=== PATIENT | female | born 1985 | race Caucasian/White ===

== ENCOUNTER 2019-04-20 12:04 | Emergency (ER) | payer BC ==
[2019-04-20 12:31] VITALS: BP 111/78
--- NOTE | 2019-04-20 13:43 | UC ---
Ear Complaint HPI - HPI Summary HPI Summary: Pt presents with c/o bialteral ear pain/ache and nasal congestion. Pt is concerned that she may have ear infections. Pt has nasal congestion and generalized body aches X 3-4 days. - History of Current Complaint Chief Complaint: UCEar Stated Complaint: EAR PAIN Time Seen by Provider: 04/20/19 12:33 Hx Obtained From: Patient Hx Last Menstrual Period: 04/04/19 ?: No Onset/Duration: Gradual Onset, Lasting Days, Still Present Severity Initially: Mild Severity Currently: Moderate Pain Intensity: 4 Pain Scale Used: 0-10 Numeric Associated Signs/Symptoms: Positive: URI Symptoms Related History: Seasonal Allergies - Allergies/Home Medications Allergies/Adverse Reactions: Allergies Allergy/AdvReac Type Severity Reaction Status Date / Time sulfamethoxazole Allergy Rash Verified 04/20/19 12:27 [From Bactrim] trimethoprim [From Bactrim] Allergy Rash Verified 04/20/19 12:27 Home Medications: Home Medications NK [No Home Medications Reported] 04/20/19 [History Confirmed 04/20/19] PMH/Surg Hx/FS Hx/Imm Hx Previously Healthy: Yes - Surgical History Surgical History: Yes Surgery Procedure, Year, and Place: 2x C-SECTIONS - Family History Known Family History: Positive: Cardiac Disease - Social History Occupation: Employed Full-time Alcohol Use: Occasionally Substance Use Type: None Smoking Status (MU): Never Smoked Tobacco Review of Systems All Other Systems Reviewed And Are Negative: Yes Constitutional: Positive: Fatigue Skin: Positive: Negative Eyes: Positive: Negative ENT: Positive: Ear Ache, Sinus Congestion Respiratory: Positive: Cough Cardiovascular: Positive: Negative Gastrointestinal: Positive: Negative Genitourinary: Positive: Negative Motor: Positive: Negative Neurovascular: Positive: Negative Musculoskeletal: Positive: Myalgia Neurological: Positive: Headache Psychological: Positive: Negative Is Patient Immunocompromised?: No Physical Exam Triage Information Reviewed: Yes Appearance: Well-Appearing Vital Signs: Initial Vital Signs Temp 98.6 F 04/20/19 12:27 Pulse 78 04/20/19 12:27 Resp 16 04/20/19 12:27 BP 111/78 04/20/19 12:27 Pulse Ox 100 04/20/19 12:27 Vital Signs Reviewed: Yes Eye Exam: Normal ENT: Positive: TM bulging Dental Exam: Normal Neck: Positive: Enlarged Nodes @ - bilateral cervical Respiratory Exam: Normal Cardiovascular Exam: Normal Musculoskeletal Exam: Normal Neurological Exam: Normal Psychological Exam: Normal Skin Exam: Normal Ear Complaint Course/Dx - Differential Dx/Diagnosis Differential Diagnosis/HQI/PQRI: Otitis Externa, Otitis Media, URI Provider Diagnosis: Acute serous otitis media of both ears without rupture Discharge ED - Sign-Out/Discharge Documenting (check all that apply): Patient Departure All imaging exams completed and their final reports reviewed: No Studies - Discharge Plan Condition: Stable Disposition: HOME Patient Education Materials: Antihistamine/Decongestant (By mouth), Serous Otitis Media (ED) Referrals: Justa Esparza MD [Primary Care Provider] - If Needed - Billing Disposition and Condition Condition: STABLE Disposition: Home - Attestation Statements Provider Attestation: Per institutional requirements, I have reviewed the chart, however, I was not consulted specifically or made aware of this patient by the midlevel provider. I did not personally evaluate, interact with , or disposition this patient.
== END 2019-04-20 12:46 | disposition home or self-care (01) ==
LOC: UCCORT 12:04
DX: H65.03 Acute serous otitis media, bilateral (principal); Z88.1 Allergy status to other antibiotic agents
CPT/HCPCS: 99211; G0463